=== PATIENT | male | born 1975 | race American Indian/Alaskan Native ===

== ENCOUNTER 2018-01-25 22:46 | Emergency (ER) | payer MEDICAID, MEDICARE ==
[2018-01-25] MEDS ORDERED: SOLU-Medrol IV ONE (23:58)
[2018-01-25] MEDS ORDERED: PEPCID IV ONE (23:58)
[2018-01-25] MEDS ORDERED: BENADRYL IV ONE (23:58)
--- NOTE | 2018-01-26 00:03 | Emergency Department Report ---
ED Allergic Reaction HPI - General Chief complaint: Allergic Reaction Stated complaint: FACE SWOLLEN Time Seen by Provider: 01/25/18 23:54 Source: patient Mode of arrival: Ambulatory Limitations: No Limitations - History of Present Illness Initial Comments: Patient is 42 years old male with history of stroke 2 left side weakness, hypertension and diabetes. Patient presented to the ER complaining of allergic reaction and happen around 9:00 this afternoon. Patient stated that he was cutting his grass and he felt ant bite. Patient presented with facial swelling and tongue swelling. Patient denied any difficulty breathing or difficulty swallowing. MD Complaint: allergic reaction, hives, facial swelling Exposure: insect bite Symptoms: rash, itching, facial swelling, orolingual swelling Treatment Prior to Arrival: benadryl - Related Data Allergies Allergy/AdvReac Type Severity Reaction Status Date / Time No Known Allergies Allergy Verified 01/26/18 03:13 ED Review of Systems ROS: Stated complaint: FACE SWOLLEN Other details as noted in HPI Comment: All other systems reviewed and negative Constitutional: denies: chills, diaphoresis, fever Respiratory: denies: cough, orthopnea, shortness of breath, SOB with exertion, SOB at rest Gastrointestinal: denies: abdominal pain, nausea Neurological: denies: headache, weakness, numbness, paresthesias, confusion ED Past Medical Hx - Past Medical History Previous Medical History?: Yes Hx Hypertension: Yes Hx CVA: Yes (2011) Hx Diabetes: Yes - Surgical History Past Surgical History?: No - Social History Smoking Status: Current Every Day Smoker Substance Use Type: None ED Physical Exam - General Limitations: No Limitations General appearance: alert, in no apparent distress - Head Head exam: Present: atraumatic, normocephalic, normal inspection - Eye Eye exam: Present: periorbital swelling - ENT ENT exam: Present: normal exam, normal orophraynx, mucous membranes moist - Neck Neck exam: Present: normal inspection, full ROM. Absent: tenderness, meningismus, lymphadenopathy, thyromegaly - Respiratory Respiratory exam: Present: normal lung sounds bilaterally - Cardiovascular Cardiovascular Exam: Present: regular rate, normal rhythm, normal heart sounds - GI/Abdominal GI/Abdominal exam: Present: soft, normal bowel sounds. Absent: distended, tenderness, guarding, rebound, rigid, organomegaly, mass, bruit, pulsatile mass , hernia - Extremities Exam Extremities exam: Present: normal inspection, normal capillary refill. Absent: pedal edema, calf tenderness - Back Exam Back exam: Present: normal inspection, full ROM. Absent: tenderness, CVA tenderness (R), CVA tenderness (L), muscle spasm, paraspinal tenderness, vertebral tenderness - Neurological Exam Neurological exam: Present: alert, oriented X3, CN II-XII intact, abnormal gait - Skin Skin exam: Present: warm, rash ED Course Vital Signs 01/25/18 01/26/18 01/26/18 23:32 00:00 00:25 Temperature 98 F Pulse Rate 92 H 84 Respiratory 20 16 98 H Rate Blood Pressure 194/124 Blood Pressure 181/124 [Right] O2 Sat by Pulse 100 98 Oximetry 01/26/18 01/26/18 01/26/18 00:42 00:45 01:00 Temperature Pulse Rate 87 Respiratory 23 Rate Blood Pressure 181/129 181/129 Blood Pressure [Right] O2 Sat by Pulse 94 97 99 Oximetry 01/26/18 01/26/18 01/26/18 01:34 01:46 02:00 Temperature Pulse Rate 83 91 H 84 Respiratory 13 21 Rate Blood Pressure 163/107 163/107 Blood Pressure [Right] O2 Sat by Pulse 96 98 Oximetry 01/26/18 01/26/18 01/26/18 02:16 02:30 02:46 Temperature Pulse Rate 90 96 H 86 Respiratory 16 28 H 32 H Rate Blood Pressure 200/144 163/107 162/110 Blood Pressure [Right] O2 Sat by Pulse 98 97 96 Oximetry 01/26/18 01/26/18 01/26/18 03:00 03:16 03:30 Temperature Pulse Rate 84 84 84 Respiratory 28 H 28 H 24 Rate Blood Pressure 184/123 184/123 184/123 Blood Pressure [Right] O2 Sat by Pulse 94 95 93 Oximetry 01/26/18 01/26/18 01/26/18 03:46 04:00 04:16 Temperature Pulse Rate 83 83 83 Respiratory 27 H 24 23 Rate Blood Pressure 159/102 159/102 157/105 Blood Pressure [Right] O2 Sat by Pulse 91 93 92 Oximetry ED Medical Decision Making - Lab Data Result diagrams: 01/26/18 00:20 01/26/18 00:20 - Medical Decision Making Patient is 42 years old male with history of stroke 2 left side weakness, hypertension and diabetes. Patient presented to the ER complaining of allergic reaction and happen around 9:00 this afternoon. Patient stated that he was cutting his grass and he felt ant bite. Patient presented with facial swelling and tongue swelling. Patient denied any difficulty breathing or difficulty swallowing. Patient observed in the ER. Patient stated that he is feeling much better. He is not feeling any tongue swelling, no difficulty breathing or swallowing. I advised the patient to follow-up with his primary care physician and to return to the ER if his symptoms is getting worse. Critical care attestation.: If time is entered above; I have spent that time in minutes in the direct care of this critically ill patient, excluding procedure time. ED Disposition Clinical Impression: Allergic reaction Disposition: DC-01 TO HOME OR SELFCARE Is pt being admited?: No Condition: Stable Instructions: Allergies (ED) Referrals: PRIMARY CARE, [Primary Care Provider] - 3-5 Days
[2018-01-26 00:42] LABS: Basophils % (Auto) 0.3 % (0.0-1.8); Eosinophils # (Auto) 0.1 K/mm3 (0.0-0.4); Eosinophils % (Auto) 0.8 % (0.0-4.3); Hematocrit 49.1 % (35.5-45.6); Hemoglobin 16.1 gm/dl (11.8-15.2); Lymphocytes # (Auto) 1.6 K/mm3 (1.2-5.4); Lymphocytes % (Auto) 24.3 % (13.4-35.0); Mean Corpuscular HGB Conc 33 % (32-34); Mean Corpuscular Hemoglobin 28 pg (28-32); Mean Corpuscular Volume 85 fl (84-94); Monocytes # (Auto) 0.5 K/mm3 (0.0-0.8); Monocytes % (Auto) 7.1 % (0.0-7.3); Platelet Count 324 K/mm3 (140-440); Red Blood Count 5.79 M/mm3 (3.65-5.03); Red Cell Distribution Width 15.2 % (13.2-15.2)
[2018-01-26 00:55] LABS: Calcium 9.5 mg/dL (8.4-10.2)
[2018-01-26] MEDS ORDERED: ZOFRAN IV ONE (03:00)
[2018-01-26] MEDS ORDERED: ZOFRAN ONE (03:05)
[2018-01-26 06:09] VITALS: BP 164/101
== END 2018-01-26 06:53 | disposition home or self-care (01) ==
LOC: ED 22:46
DX: T78.40XA Allergy, unspecified, initial encounter (principal); I10 Essential (primary) hypertension; E11.9 Type 2 diabetes mellitus without complications; Z86.73 Personal history of transient ischemic attack (TIA), and cerebral infarction without residual deficits; F17.200 Nicotine dependence, unspecified, uncomplicated; X58.XXXA Exposure to other specified factors, initial encounter
CPT/HCPCS: 36415; 80048; 85025; 96374; 96375; 99284; J1200; J2405; J2930